=== PATIENT | male | born 1955 | race Caucasian/White ===

== ENCOUNTER → 2016-09-12 | Outpatient (CLI) | payer OTHER ==
[~2016-09-12] MED LIST: ALTACE10 MG PO
== END | disposition short-term general hospital (02) ==
LOC: CLSURG 08:26
DX: K42.9 Umbilical hernia without obstruction or gangrene (principal); Z96.89 Presence of other specified functional implants

== ENCOUNTER 2016-09-19 07:16 | Day surgery (SDC) | payer OTHER ==
[~2016-09-19] VITALS: Ht 185.4 cm; Wt 117.5 kg
== END 2016-09-19 10:30 | disposition short-term general hospital (02) ==
LOC: SURGOP 07:16
PROC: 0WUF0JZ Supplement Abdominal Wall with Synthetic Substitute, Open Approach (ICD-10-PCS; principal; 2016-09-19)
DX: K42.9 Umbilical hernia without obstruction or gangrene (principal); I10 Essential (primary) hypertension; E78.5 Hyperlipidemia, unspecified; E66.9 Obesity, unspecified; Z68.31 Body mass index [BMI] 31.0-31.9, adult; Z87.891 Personal history of nicotine dependence; Z79.899 Other long term (current) drug therapy; Z98.890 Other specified postprocedural states
CPT/HCPCS: C1781; J0690; J2250; J3010

== ENCOUNTER → 2016-09-26 | Outpatient (CLI) | payer OTHER | END | disposition short-term general hospital (02) | LOC: CLSURG 07:51 | DX: Z48.815 Encounter for surgical aftercare following surgery on the digestive system (principal); Z87.19 Personal history of other diseases of the digestive system; Z98.890 Other specified postprocedural states ==

== ENCOUNTER 2016-10-27 07:08 | Day surgery (SDC) | payer OTHER | END 2016-10-27 09:23 | disposition short-term general hospital (02) | LOC: SURGOP 07:08 | PROC: 0DBE8ZX Excision of Large Intestine, Via Natural or Artificial Opening Endoscopic, Diagnostic (ICD-10-PCS; principal; 2016-10-27) | DX: Z12.11 Encounter for screening for malignant neoplasm of colon (principal); D12.6 Benign neoplasm of colon, unspecified; K57.30 Diverticulosis of large intestine without perforation or abscess without bleeding; I10 Essential (primary) hypertension; E66.9 Obesity, unspecified; Z68.34 Body mass index [BMI] 34.0-34.9, adult; Z87.891 Personal history of nicotine dependence; Z79.899 Other long term (current) drug therapy | CPT/HCPCS: J2175; J2250 ==